=== PATIENT | female | born 1975 | race Asian ===

== ENCOUNTER 2018-04-16 12:35 | Emergency (ER) | payer MEDICAID, OTHER ==
[~2018-04-16] VITALS: Ht 160 cm; Wt 63.5 kg
[2018-04-16] MEDS ORDERED: ETOMIDATE (2MG/ML) 20ML VIAL IV ONE ×2 (14:00→14:02)
[2018-04-16 14:22] VITALS: BP 126/79
== END 2018-04-16 14:50 | disposition home or self-care (01) ==
LOC: EDBD 12:35 → ER 12:44
DX: S53.124A Posterior dislocation of right ulnohumeral joint, initial encounter (principal); W17.89XA Other fall from one level to another, initial encounter; Z91.81 History of falling; Y93.23 Activity, snow (alpine) (downhill) skiing, snowboarding, sledding, tobogganing and snow tubing; Y92.828 Other wilderness area as the place of occurrence of the external cause; Y99.8 Other external cause status
CPT/HCPCS: 24600; 73070; 94761